=== PATIENT | female | born 1935 | race Caucasian/White ===

== ENCOUNTER → 2018-02-12 | Outpatient (CLI) | payer OTHER ==
[~2018-02-12] MED LIST: CHOL1TAB12 PO; CLR10 PO; FERR325T74 PO; LPT10 PO; METO25TA56 PO; NXM/40 PO; VENL150T33 PO
--- NOTE | 2018-02-12 11:42 | DIAGNOSTIC IMAGING REPORT ---
GI SERIES W/AIR ROUTINE CLINICAL HISTORY: Hiatal hernia. Gastroesophageal reflux disease. COMPARISON STUDY: Barium swallow February 05, 2015. FLUOROSCOPY TIME: 3.2 minutes. FINDINGS: Moderate esophageal dysmotility is noted. No esophageal mass or stricture is noted. A suspected sliding type hiatal hernia is noted which appears similar to exam of February 05, 2015. Proximal portion of stomach appears above the diaphragm. Gastric fold pattern is unremarkable. 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 IMPRESSION: 1. Suspected sliding-type hiatal hernia. 2. Moderate esophageal dysmotility. 3. No esophageal mass or stricture. Electronically signed by: Raul Kraus M.D. 02/12/2018 11:41 AM Dictated Date/Time: 02/12/2018 11:39 AM
== END | disposition home or self-care (01) ==
LOC: C.RAD 10:12
PROVIDERS: ATTEND Surgery
DX: K21.9 Gastro-esophageal reflux disease without esophagitis (principal); K22.4 Dyskinesia of esophagus

== ENCOUNTER 2022-09-27 13:53 | Inpatient (IN) ==
[2022-09-27] MEDS ORDERED: SODIUM CHLORIDE 0.9% 1000ML 1,000 ML IV ONE (14:12)
--- NOTE | 2022-09-27 14:16 | Emergency Department Note ---
Impression & Plan Acute blood loss anemia, PUD (peptic ulcer disease) ED Provider Note Name: LISA SIDDQII Age: 87 Sex: F Arrives Via: Walk-In Informant: Patient ED Provider: Bairon Kahn MD Chief Complaint: Weakness Impression: As per impressions above Medical Decision Making: Pleasant 87-year-old female with an extensive past medical history including diabetes, hypertension, GERD, CKD, aortic stenosis status post TAVR with a history of GI bleed arrives for evaluation of weakness from her medical sales consultant appointment. Patient is a bit pale appearing tired appearing but not in significant distress. Patient arrives hypotensive pale appearing but not significantly tachycardic. She was laid in bed and given a liter normal saline with much improvement in her blood pressure. Labs reveal significant anemia. Rectal exam heme positive dark stool. Given IV protonix and consented to blood transfusion. 1 Unit PRBC ordered. Patient without peritonitis nor surgical abdomen. Does not appear bacteremic and no evidence this is sepsis at this time. She was discussed with hospitalist who will manage further. Stable post fluid resuscitation. Prior Medical Record and Triage/Nursing Notes reviewed by Me Additional history obtained from chart Differentials:Infection, dehydration, metabolic abnormality, hypo/hyperglycemia, electrolyte disturbance, anemia, hypoxia, cardiac sources, intracerebral event, toxicologic, neurologic, as well as other pathologies. Vital Signs: reviewed and remarkable for hypotension Interventions: nss bolus, protonix iv, 1 unit prbc Labs:Reviewed and remarkable for anemia Imaging:X ray results are stated below per my interpretation: Chest: 1 view: No infiltrate, no effusion, normal cardiac border. EKG:As per my interpretation, indication weakness. Normal sinus rhythm at 89 bpm with a QTC of 474. There is no ectopy nor ischemia. EKG is similar to that of June 15, 2016. Consults:hospitalist Plan: Disposition:Hospitalization. Condition: Good History of Present Illness:87-year-old female arrives for evaluation of weakness. Patient notes for the last few months worsening weakness fatigue and lack of appetite. She notes she sometimes throws up but that has been going on for years now. She once had blood in her vomit but it has been in her vomit since February 2022. She states she gets severely short of breath with any exertion and can even get around her house now. This is worsened over the last few months and is to the point where she spends most of her day in bed. She does not have an appetite either and does not eat very often. She denies any fevers, chills, chest pain, syncope, palpitations, abdominal pain, back pain, urinary/bowel symptoms, leg swelling, calf pain, bruising/bleeding or other concerning signs or symptoms. No new medications Has had no acute medications this morning. Patient seen by her medical sales consultant this morning who advised she come to the ER for evaluation. ROS: See above HPI for pertinent positives & negatives. A total of 10 systems reviewed and were otherwise negative. Past Medical History:See Below Past Surgical History:See Below Family History:See Below Social History:See Below Home Medications:See Below Allergies:No known drug allergies Vitals:Blood Pressure: 76/40, Pulse 51, RR 88, T 20C, O2 36.5% on 94 Physical Exam: GENERAL: Patient is tired/dehydrated appearing and in mild distress. EYES: No scleral icterus, unremarkable pupils. ENT: Mucous membranes moist, no nasal congestion. NECK: No masses appreciated, nomeningismus, trachea is midline. RESPIRATORY: No dyspnea. Clear to auscultation and equal bilaterally. No wheeze, no rhonchi. CARDIOVASCULAR: Regular rate and rhythm.No murmurs, rubs, gallops appreciated. GASTROINTESTINAL: Abdomen soft, non-tender, no peritonitis.Bowel sounds positive.No masses appreciated. BACK: No midline tenderness, no CVA tenderness EXTREMITIES: Normal motion all extremities, no cyanosis, no edema. NEUROLOGIC: Alert and oriented, no acute motor or sensory deficits, no focal weakness, cranial nerves grossly intact. SKIN: No rash, no jaundice, no diaphoresis. PSYCH: Appropriate GCS: 15 ED Course: Times/Reassessments: Much improved following fluid bolus stable no distress. Agreeable to blood transfusion and hospitalization. Critical Care: I have personally spent 35 minutes of critical care time in the direct management of this patient. Acute hypotension in setting of blood loss anemia from GI bleed. This was a life/limb threatening event. This 35 minutes is in excess of all separately billable procedures. Bairon Kahn MD Past Med/Surg History Medical History Anemia Anxiety Cardiac murmur Chronic kidney disease, stage 3 Depression Dyspnea on exertion GERD (gastroesophageal reflux disease) History of colon polyps Hyperlipidemia Hypertension On home oxygen therapy 2-3L N/C when she takes a shower Osteoarthritis Symptomatic anemia Surgical History H/O splenectomy "s/p accident 1980" History of bunionectomy of left great toe History of colonoscopy History of dilatation and curettage multiple History of esophagogastroduodenoscopy (EGD) History of left breast biopsy benign History of left cataract extraction History of repair of hiatal hernia History of wisdom tooth extraction Family History Mother Family history of diabetes mellitus Father Family history of diabetes mellitus Sister Family history of diabetes mellitus several Family hx of colon cancer Other No family history of adverse response to anesthesia Social History Smoking Status: Never smoker Second Hand Exposure: Yes; Do You Dip or Chew Tobacco: No; Hx Alcohol Use: No Hx Substance Use: No Preferred Language: French Communication Ability: Effective Submersible Pilot Required: No Beliefs That Will Affect Care: None Current Living Situation: Spouse and Family Current Living Situation Comment: Lives with and son and granddaughter Feels Safe at Home: Yes Safety Concerns: Feels Safe At This Time Assistive Devices: None Allergies Allergies Allergy/AdvReac Type Severity Reaction Status Date / Time pollen extracts Allergy Intermediate Sneezing Verified 09/27/22 16:19 Home Meds Home Medications Medication Instructions Recorded Confirmed fluticasone propionate 50 2 spray intranasal DAILY PRN 07/21/19 09/27/22 mcg/actuation nasal Congestion spray,suspension (Flonase Allergy Relief) multivitamin 1 tab PO 3XWK 07/21/19 09/27/22 pantoprazole 40 mg tablet,delayed 40 mg PO DAILY 07/21/19 09/27/22 release amoxicillin 500 mg tablet 2,000 mg PO DIRECTED PRN PRIOR 09/27/22 09/27/22 TO DENTAL APPT. atorvastatin 80 mg tablet 80 mg PO DAILY 09/27/22 09/27/22 cholecalciferol (vitamin D3) 25 75 mcg PO DAILY 09/27/22 09/27/22 mcg (1,000 unit) capsule (Vitamin D3) iron,carbonyl 65 mg-vitamin C 125 1 tab PO DAILY 09/27/22 09/27/22 mg tablet,delayed release (Vitron-C) metoprolol succinate 25 mg 12.5 mg PO DAILY 09/27/22 09/27/22 tablet,extended release 24 hr mirtazapine 7.5 mg tablet 7.5 mg PO HS 09/27/22 09/27/22 sertraline 50 mg tablet 75 mg PO QPM 09/27/22 09/27/22 Results & Data (ED) Vital Signs Vital Signs - 24 hr 09/27/22 13:55 Temperature 36.5 C Temperature Source Temporal Artery Scan Pulse Rate 88 Respiratory Rate 20 Respiratory Effort / Characteristics Non-Labored Spontaneous Respiratory Depth Normal Respiratory Pattern Regular Blood Pressure 76/51 L Blood Pressure Mean 59 Blood Pressure Position Sitting Pulse Oximetry 94 Oxygen Delivery Method Room Air Sepsis Recent Fever Within 48 Hours No Sepsis New/Unexplained Change in Mental Status No Sepsis Action Taken by Nursing No Action Required Laboratory Data Result diagrams: 09/29/22 06:42 09/29/22 06:42 Lab Results 09/27/22 09/27/22 09/27/22 Range/Units 14:10 14:10 14:10 WBC 8.69 (4.8-10.8) K/ul RBC 3.66 L (3.93-5.22) M/uL Hgb 7.1 L (12.0-16.0) g/dl Hct 24.2 L (34.1-44.9) % MCV 66.1 L (80.0-100.0) fL MCH 19.4 L (25.0-34.0) pg MCHC 29.3 L (32.0-36.0) g/dL RDW Std Deviation 47.5 H (36.4-46.3) fL RDW Coeff of Karen 21.5 H (11.5-14.5) % Plt Count 299 (130-400) K/uL MPV 10.9 (9.4-12.3) fL Immature Gran % (Auto) 0.3 % Neut % (Auto) 68.2 % Lymph % (Auto) 22.0 % Ripley % (Auto) 8.5 % Eos % (Auto) 0.5 % Baso % (Auto) 0.5 % Neut # (Auto) 5.93 (1.4-6.5) K/uL Lymph # (Auto) 1.91 (1.2-3.4) K/uL Ripley # (Auto) 0.74 (0.24-0.82) K/uL Eos # (Auto) 0.04 (0-0.50) K/uL Baso # (Auto) 0.04 (0-0.2) K/uL Immature Gran # (Auto) 0.03 H (0.00-0.02) K/uL Absolute Nucleated RBC 0.03 H (0-0) K/uL Nucleated RBC % (auto) 0.3 % Polychromasia 1+ Hypochromasia Present Anisocytosis Present Macrocytosis Present Target Cells 2+ Peripher Smr Path Cons Sodium 136 (136-145) mmol/L Potassium 3.8 (3.5-5.1) mmol/L Chloride 101 (98-107) mmol/L Carbon Dioxide 26 (21-32) mmol/L Anion Gap 9 (3-11) BUN 20 (6-23) mg/dl Creatinine 1.06 (0.6-1.2) mg/dl Est Cr Clr Drug Dosing 33.2 ml/min Est GFR ( Amer) 54.7 ml/min Est GFR (Non-Af Amer) 47.2 ml/min BUN/Creatinine Ratio 18.9 (10-20) Glucose 155 H (70-99(Fasting)) mg/dl Calcium 9.1 (8.5-10.1) mg/dl Magnesium 2.1 (1.7-2.4) mg/dl Iron (35-150) mcg/dl Transferrin (200-360) mg/dl Ferritin (8-388) ng/ml Total Bilirubin 0.6 (0.2-1.0) mg/dl AST 19 (13-39) U/L ALT 14 (7-52) U/L Alkaline Phosphatase 49 (34-104) U/L Lactate Dehydrogenase (86-244) U/L Troponin I High Sens 147.1 H* (0-14) pg/ml Total Protein 7.7 (6.0-8.3) gm/dl Albumin 4.1 (3.4-5.0) gm/dl Globulin 3.6 (2.5-4.0) gm/dl Albumin/Globulin Ratio 1.1 (0.9-2) Vitamin B12 (180-914) pg/ml Folate (>5.38) ng/ml TSH 1.515 (0.300-4.500) uIu/ml SARS-CoV-2 (PCR) (Negative) Influenza Type A (PCR) (Neg) Influenza Type B (PCR) (Neg) RSV (RT-PCR) (Neg) Blood Type Antibody Screen Crossmatch 09/27/22 09/27/22 09/27/22 Range/Units 14:10 14:10 14:10 WBC (4.8-10.8) K/ul RBC (3.93-5.22) M/uL Hgb (12.0-16.0) g/dl Hct (34.1-44.9) % MCV (80.0-100.0) fL MCH (25.0-34.0) pg MCHC (32.0-36.0) g/dL RDW Std Deviation (36.4-46.3) fL RDW Coeff of Karen (11.5-14.5) % Plt Count (130-400) K/uL MPV (9.4-12.3) fL Immature Gran % (Auto) % Neut % (Auto) % Lymph % (Auto) % Ripley % (Auto) % Eos % (Auto) % Baso % (Auto) % Neut # (Auto) (1.4-6.5) K/uL Lymph # (Auto) (1.2-3.4) K/uL Ripley # (Auto) (0.24-0.82) K/uL Eos # (Auto) (0-0.50) K/uL Baso # (Auto) (0-0.2) K/uL Immature Gran # (Auto) (0.00-0.02) K/uL Absolute Nucleated RBC (0-0) K/uL Nucleated RBC % (auto) % Polychromasia Hypochromasia Anisocytosis Macrocytosis Target Cells Peripher Smr Path Cons Cancelled Sodium (136-145) mmol/L Potassium (3.5-5.1) mmol/L Chloride (98-107) mmol/L Carbon Dioxide (21-32) mmol/L Anion Gap (3-11) BUN (6-23) mg/dl Creatinine (0.6-1.2) mg/dl Est Cr Clr Drug Dosing ml/min Est GFR ( Amer) ml/min Est GFR (Non-Af Amer) ml/min BUN/Creatinine Ratio (10-20) Glucose (70-99(Fasting)) mg/dl Calcium (8.5-10.1) mg/dl Magnesium (1.7-2.4) mg/dl Iron 217 H (35-150) mcg/dl Transferrin 353 (200-360) mg/dl Ferritin 5.1 L (8-388) ng/ml Total Bilirubin (0.2-1.0) mg/dl AST (13-39) U/L ALT (7-52) U/L Alkaline Phosphatase (34-104) U/L Lactate Dehydrogenase (86-244) U/L Troponin I High Sens (0-14) pg/ml Total Protein (6.0-8.3) gm/dl Albumin (3.4-5.0) gm/dl Globulin (2.5-4.0) gm/dl Albumin/Globulin Ratio (0.9-2) Vitamin B12 363 (180-914) pg/ml Folate > 22.30 (>5.38) ng/ml TSH (0.300-4.500) uIu/ml SARS-CoV-2 (PCR) (Negative) Influenza Type A (PCR) (Neg) Influenza Type B (PCR) (Neg) RSV (RT-PCR) (Neg) Blood Type Antibody Screen Crossmatch 09/27/22 09/27/22 09/27/22 Range/Units 14:10 14:17 15:12 WBC (4.8-10.8) K/ul RBC (3.93-5.22) M/uL Hgb (12.0-16.0) g/dl Hct (34.1-44.9) % MCV (80.0-100.0) fL MCH (25.0-34.0) pg MCHC (32.0-36.0) g/dL RDW Std Deviation (36.4-46.3) fL RDW Coeff of Karen (11.5-14.5) % Plt Count (130-400) K/uL MPV (9.4-12.3) fL Immature Gran % (Auto) % Neut % (Auto) % Lymph % (Auto) % Ripley % (Auto) % Eos % (Auto) % Baso % (Auto) % Neut # (Auto) (1.4-6.5) K/uL Lymph # (Auto) (1.2-3.4) K/uL Ripley # (Auto) (0.24-0.82) K/uL Eos # (Auto) (0-0.50) K/uL Baso # (Auto) (0-0.2) K/uL Immature Gran # (Auto) (0.00-0.02) K/uL Absolute Nucleated RBC (0-0) K/uL Nucleated RBC % (auto) % Polychromasia Hypochromasia Anisocytosis Macrocytosis Target Cells Peripher Smr Path Cons Sodium (136-145) mmol/L Potassium (3.5-5.1) mmol/L Chloride (98-107) mmol/L Carbon Dioxide (21-32) mmol/L Anion Gap (3-11) BUN (6-23) mg/dl Creatinine (0.6-1.2) mg/dl Est Cr Clr Drug Dosing ml/min Est GFR ( Amer) ml/min Est GFR (Non-Af Amer) ml/min BUN/Creatinine Ratio (10-20) Glucose (70-99(Fasting)) mg/dl Calcium (8.5-10.1) mg/dl Magnesium (1.7-2.4) mg/dl Iron (35-150) mcg/dl Transferrin (200-360) mg/dl Ferritin (8-388) ng/ml Total Bilirubin (0.2-1.0) mg/dl AST (13-39) U/L ALT (7-52) U/L Alkaline Phosphatase (34-104) U/L Lactate Dehydrogenase 250 H (86-244) U/L Troponin I High Sens (0-14) pg/ml Total Protein (6.0-8.3) gm/dl Albumin (3.4-5.0) gm/dl Globulin (2.5-4.0) gm/dl Albumin/Globulin Ratio (0.9-2) Vitamin B12 (180-914) pg/ml Folate (>5.38) ng/ml TSH (0.300-4.500) uIu/ml SARS-CoV-2 (PCR) NEGATIVE (Negative) Influenza Type A (PCR) Negative (Neg) Influenza Type B (PCR) Negative (Neg) RSV (RT-PCR) Negative (Neg) Blood Type A Positive Antibody Screen NEGATIVE Crossmatch See Detail Administered Medications Atorvastatin Calcium (Atorvastatin 40 Mg Tab) 80 mg PO DAILY ELBA Stop: 10/28/22 08:59 Last Admin: 09/29/22 07:47 Dose: 80 mg Documented By: Admin: 09/28/22 08:58 Dose: 80 mg Documented By: DTT Pantoprazole Sodium 40 mg/ (Dextrose) 100 mls @ 20 mls/hr IV Q5H ELBA Stop: 10/27/22 19:29 Last Admin: 09/29/22 07:55 Dose: 8 mg/hr, 20 mls/hr Documented By: Infusion: 09/29/22 07:48 Dose: 8 mg/hr, 20 mls/hr Documented By: Admin: 09/29/22 02:48 Dose: 8 mg/hr, 20 mls/hr Documented By: Infusion: 09/29/22 02:48 Dose: 0 mg/hr, 0 mls/hr Documented By: Admin: 09/28/22 21:37 Dose: 8 mg/hr, 20 mls/hr Documented By: Infusion: 09/28/22 21:37 Dose: 8 mg/hr, 20 mls/hr Documented By: Admin: 09/28/22 17:25 Dose: 8 mg/hr, 20 mls/hr Documented By: Infusion: 09/28/22 17:14 Dose: 8 mg/hr, 20 mls/hr Documented By: Admin: 09/28/22 12:14 Dose: 8 mg/hr, 20 mls/hr Documented By: Infusion: 09/28/22 11:02 Dose: 8 mg/hr, 20 mls/hr Documented By: Admin: 09/28/22 06:02 Dose: 8 mg/hr, 20 mls/hr Documented By: Infusion: 09/28/22 05:35 Dose: 8 mg/hr, 20 mls/hr Documented By: Admin: 09/28/22 00:35 Dose: 8 mg/hr, 20 mls/hr Documented By: Infusion: 09/28/22 00:35 Dose: 8 mg/hr, 20 mls/hr Documented By: Admin: 09/27/22 20:13 Dose: 8 mg/hr, 20 mls/hr Documented By: OO Insulin Aspart (Insulin Aspart Per Unit) 0 units SC ACHS ELBA Stop: 10/27/22 20:59 Last Admin: 09/28/22 20:44 Dose: Not Given Documented By: Admin: 09/28/22 17:21 Dose: Not Given Documented By: Admin: 09/28/22 13:30 Dose: Not Given Documented By: Admin: 09/28/22 10:22 Dose: Not Given Documented By: Admin: 09/27/22 20:13 Dose: Not Given Documented By: OO Metoprolol Succinate (Metoprolol Succ 25mg Ext Rel Tab) 12.5 mg PO DAILY ELBA Stop: 10/28/22 08:59 Last Admin: 09/29/22 07:47 Dose: 12.5 mg Documented By: Admin: 09/28/22 08:58 Dose: 12.5 mg Documented By: DTT Mirtazapine (Mirtazapine Tab 15 Mg Tab) 7.5 mg PO HS ELBA Stop: 10/27/22 20:59 Last Admin: 09/28/22 21:13 Dose: 7.5 mg Documented By: Admin: 09/27/22 20:48 Dose: 7.5 mg Documented By: OBryan Sertraline HCl (Sertraline Hcl 50 Mg Tablet) 75 mg PO QPM ELBA Stop: 10/27/22 20:59 Last Admin: 09/28/22 21:13 Dose: 75 mg Documented By: Admin: 09/27/22 20:47 Dose: 75 mg Documented By: OO Discontinued Medications Acetaminophen (Acetaminophen 325 Mg Tab) 650 mg PO NOW ONE Stop: 09/28/22 05:21 Last Admin: 09/28/22 05:30 Dose: 650 mg Documented By: KENNY Furosemide (Furosemide Inj 20 Mg/2 Ml Vial) 20 mg IV ONE ONE Stop: 09/28/22 08:31 Last Admin: 09/28/22 09:42 Dose: 20 mg Documented By: DTT Sodium Chloride (Nss 1000ml) 1,000 mls @ 999 mls/hr IV .[id number] ONE Stop: 09/27/22 15:12 Last Infusion: 09/27/22 15:17 Dose: 0 mls/hr Documented By: Admin: 09/27/22 14:15 Dose: 999 mls/hr Documented By: SERGEI Pantoprazole Sodium 80 mg/ (Dextrose) 100 mls @ 400 mls/hr IV ONE STA Stop: 09/27/22 15:02 Last Infusion: 09/27/22 15:25 Dose: 0 mls/hr Documented By: Admin: 09/27/22 15:08 Dose: 400 mls/hr Documented By: DANIAL(2) Sodium Chloride (Nss 1000ml) 1,000 mls @ 60 mls/hr IV .[id number] ELBA Stop: 09/29/22 04:17 Last Infusion: 09/29/22 05:43 Dose: 0 mls/hr Documented By: Admin: 09/28/22 14:00 Dose: 60 mls/hr Documented By: Infusion: 09/28/22 12:53 Dose: 60 mls/hr Documented By: Admin: 09/27/22 20:12 Dose: 60 mls/hr Documented By: OO Discharge Plan Visit Data Chief Complaint: Dehydration Stated Complaint: POSSIBLE DEHYDRATION ED Provider: Bairon Kahn Discharge Problem: Acute blood loss anemia, PUD (peptic ulcer disease) Patient Disposition: Admitted As Inpatient Discharge Instructions Interventions: ED Discharge Assessment Last Done: 09/27/22 19:02
[2022-09-27 14:24] LABS: Hematocrit (blood only) 24.2 % (34.1-44.9); Hemoglobin 7.1 g/dl (12.0-16.0); Mean Corpuscular Hemoglobin 19.4 pg (25.0-34.0); Mean Corpuscular Hgb Conc 29.3 g/dL (32.0-36.0); Mean Corpuscular Volume 66.1 fL (80.0-100.0); Nucleated RBC # (auto) 0.03 K/uL (0-0); Nucleated RBC % (auto) 0.3 %; RDW Coefficient of Variation 21.5 % (11.5-14.5); RDW Standard Deviation 47.5 fL (36.4-46.3); Red Blood Count 3.66 M/uL (3.93-5.22); White Blood Count 8.69 K/ul (4.8-10.8)
[2022-09-27 14:29] LABS: Mean Platelet Volume 10.9 fL (9.4-12.3); Platelet Count 299 K/uL (130-400)
[2022-09-27 14:44] LABS: Anisocytosis Present; Basophils # (auto) 0.04 K/uL (0-0.2); Basophils % (auto) 0.5 %; Eosinophils # (auto) 0.04 K/uL (0-0.50); Eosinophils % (auto) 0.5 %; Hypochromasia Present; Immature Granulocytes # (auto) 0.03 K/uL (0.00-0.02); Immature Granulocytes % (auto) 0.3 %; Lymphocytes # (auto) 1.91 K/uL (1.2-3.4); Macrocytosis Present; Monocytes # (auto) 0.74 K/uL (0.24-0.82); Monocytes % (auto) 8.5 %; Neutrophils # (auto) 5.93 K/uL (1.4-6.5); Neutrophils % (auto) 68.2 %; Polychromasia 1+; Target Cells 2+
[2022-09-27] MEDS ORDERED: SODIUM CHLORIDE 0.9% 250 ML IV PRN (14:48)
[2022-09-27] MEDS ORDERED: PANTOprazole 80 MG in DEXTROSE 5% 100 ML IV STA (14:48)
[2022-09-27 14:52] LABS: Albumin Globulin Ratio 1.1 (0.9-2); Albumin Level 4.1 gm/dl (3.4-5.0); BUN Creatinine Ratio 18.9 (10-20); Bilirubin,Total 0.6 mg/dl (0.2-1.0); Calcium 9.1 mg/dl (8.5-10.1); Creatinine Clr Calc Pharmacy 33.2 ml/min; Est GFR (African American) 54.7 ml/min; Est GFR (Non-African American) 47.2 ml/min; Globulin 3.6 gm/dl (2.5-4.0); Magnesium 2.1 mg/dl (1.7-2.4); Potassium 3.8 mmol/L (3.5-5.1); Total Protein 7.7 gm/dl (6.0-8.3)
[2022-09-27 15:09] LABS: Influenza A virus by PCR Negative (Neg); Influenza B virus by PCR Negative (Neg); RSV by PCR Negative (Neg); SARS CoV2 RNA(COVID-19) Ceph NEGATIVE (Negative)
--- NOTE | 2022-09-27 15:10 | XRay Report ---
XR chest 1V portable HISTORY: Shortness of breath. Dehydration. COMPARISON: None. FINDINGS: No pneumothorax. No pleural effusions. There is a large hiatus hernia. The heart is normal in size. No focal lung consolidations to suggest a pneumonia. No evidence for pulmonary edema. IMPRESSION: 1. No acute process within the chest. 2. Large hiatus hernia. ACT 112: Negative or not required by law. Electronically signed by: Swapnil Dietz M.D. 09/27/2022 3:09 PM
[2022-09-27 15:13] LABS: Troponin I High Sensitivity 147.1 pg/ml (0-14)
--- NOTE | 2022-09-27 16:19 | History & Physical Report ---
Date of Service September 27, 2022 Assessment & Plan (1) Symptomatic anemia: Plan: Symptomatic Anemia Melena +FOBT in ED CT ABD:No acute abnormalities, in particular no evidence of intra-abdominal hemorrhage in this patient with anemia. S/P 1 unit PRBC Monitor H&H Transfuse PRBCs as needed Avoid anticoagulants, NASIDs Anemia work up ordered Started on IV protonix ggt NPO, IV fluids GI consulted Generalized Weakness Failure to Thrive Weight loss ? Multifactorial H/O TAVR Normal TSH PT/OT as able Needs further work-up for weight loss as outpatient Troponin Elevation Likely demand ischemia secondary to significant anemia Denies any chest pain Trend troponin EKG showed no signs of acute ischemia Check ECHO DM II Diet controlled Update HbA1C Insulin per Protocol for now Monitor BGs Severe aortic stenosis S/P TAVR in 2020 Follows with [facility] cardiology as outpatient Continue metoprolol CKD stage III Cr at baseline Monitor BGs Insomnia Mood disorder Continue home meds DVT Px: SCDs Code Status Full Code Disposition PT/OT prior to surgery History of Present Illness Chief Complaint: Generalized weakness Primary Care Provider: Maria Teresa Tomas DO Patient is an 87-year-old female with history of severe aortic stenosis S/P TAVR in 2020, GERD, CKD stage III, insomnia, mood disorder, paroxysmal atrial tachycardia, dyslipidemia, diabetes and other medical problems presents with history of generalized weakness, fatigue with minimal exertion, weight loss which has been ongoing for many months. Patient was evaluated by her draw frame runner today and was thought to be dehydrated and so was sent to ED for further evaluation. Patient admits to have lost about 30 to 40 pounds in about 1 year. She had TAVR about 1 year ago and has not been feeling well since the surgery. She reports having prior history of peptic ulcer disease requiring blood transfusions many years ago. She has been having intermittent nausea, vomiting, poor oral intake and intermittent epigastric pain which she describes as burning type, relieved with yogurt but denies any aggravating factors, radiation. Reports chronic constipation last bowel movement 2 days ago. She states having black stools which she attributes to iron pills but did not notice any bright red blood per rectum. She states that she is not able to perform her ADLs like she did before and she has been lying in bed most of the time for last few months. Denies any history of chest pain, dyspnea, palpitations, pedal edema, cough, fever, chills, headache, diarrhea, dysuria, hematuria. Allergies Allergy/AdvReac Type Severity Reaction Status Date / Time pollen extracts Allergy Intermediate Sneezing Verified 09/27/22 16:19 Home Medications Medication Instructions Recorded Confirmed Type fluticasone propionate 50 2 spray intranasal DAILY PRN 07/21/19 09/27/22 History mcg/actuation nasal Congestion spray,suspension (Flonase Allergy Relief) multivitamin 1 tab PO 3XWK 07/21/19 09/27/22 History pantoprazole 40 mg tablet,delayed 40 mg PO DAILY 07/21/19 09/27/22 History release amoxicillin 500 mg tablet 2,000 mg PO DIRECTED PRN PRIOR 09/27/22 09/27/22 History TO DENTAL APPT. atorvastatin 80 mg tablet 80 mg PO DAILY 09/27/22 09/27/22 History cholecalciferol (vitamin D3) 25 75 mcg PO DAILY 09/27/22 09/27/22 History mcg (1,000 unit) capsule (Vitamin D3) iron,carbonyl 65 mg-vitamin C 125 1 tab PO DAILY 09/27/22 09/27/22 History mg tablet,delayed release (Vitron-C) metoprolol succinate 25 mg 12.5 mg PO DAILY 09/27/22 09/27/22 History tablet,extended release 24 hr mirtazapine 7.5 mg tablet 7.5 mg PO HS 09/27/22 09/27/22 History sertraline 50 mg tablet 75 mg PO QPM 09/27/22 09/27/22 History Past Med/Surg History Medical History (Updated 09/27/22 @ 19:16 by Harrison Vega MD) Anemia Anxiety Cardiac murmur Chronic kidney disease, stage 3 Depression Dyspnea on exertion GERD (gastroesophageal reflux disease) History of colon polyps Hyperlipidemia Hypertension On home oxygen therapy 2-3L N/C when she takes a shower Osteoarthritis Symptomatic anemia Surgical History H/O splenectomy "s/p accident 1980" History of bunionectomy of left great toe History of colonoscopy History of dilatation and curettage multiple History of esophagogastroduodenoscopy (EGD) History of left breast biopsy benign History of left cataract extraction History of repair of hiatal hernia History of wisdom tooth extraction Family History Mother Family history of diabetes mellitus Father Family history of diabetes mellitus Sister Family history of diabetes mellitus several Family hx of colon cancer Other No family history of adverse response to anesthesia Social History Smoking Status: Never smoker Second Hand Exposure: No; Hx Alcohol Use: No Hx Substance Use: No Preferred Language: Wolof Communication Ability: Effective Assembler Chassis Required: Voice Beliefs That Will Affect Care: None Current Living Situation: Spouse Current Living Situation Comment: Lives with and son and granddaughter Feels Safe at Home: Yes Assistive Devices: None Review of Systems Review of Systems: All systems reviewed & are unremarkable except as noted in Subjective Physical Exam Physical Exam: Physical Exam: Vitals signs as noted above General Appearance:Moderately built and nourished, no apparent distress Head: normocephalic, Atraumatic Eyes: normal inspection, EOMI Neck: supple, Trachea midline Respiratory/Chest: Normal breath sounds, CTA, No accessory muscle use Cardiovascular: S1, S2, + murmur Abdomen/GI:Soft, mild hypogastric tender, Bowel sounds present Extremities/Musculoskeletal:normal inspection, no edema Neurologic/Psych:AAOX3, grossly no focal neurological deficits Skin: normal color, warm Results & Data Results & Data ([facility]) Vital Signs (Past 12 Hours) Vital Signs Temp Pulse Pulse Resp BP BP Pulse Ox 09/27/22 15:06 75 20 131/77 99 09/27/22 14:30 80 18 115/61 96 09/27/22 14:13 84 20 111/59 L 97 09/27/22 13:55 36.5 C 88 20 76/51 L 94 O2 Del Method 09/27/22 15:06 Room Air 09/27/22 14:30 Room Air 09/27/22 14:13 Room Air 09/27/22 13:55 Room Air Laboratory Results Short CBC 09/27/22 Range/Units 14:10 WBC 8.69 (4.8-10.8) K/ul Hgb 7.1 L (12.0-16.0) g/dl Hct 24.2 L (34.1-44.9) % Plt Count 299 (130-400) K/uL BMP 09/27/22 14:10 Sodium 136 Potassium 3.8 Chloride 101 Carbon Dioxide 26 BUN 20 Creatinine 1.06 Glucose 155 H Calcium 9.1 Liver Function 09/27/22 Range/Units 14:10 Total Bilirubin 0.6 (0.2-1.0) mg/dl AST 19 (13-39) U/L ALT 14 (7-52) U/L Alkaline Phosphatase 49 (34-104) U/L Albumin 4.1 (3.4-5.0) gm/dl
--- NOTE | 2022-09-27 17:08 | CT Scan Report ---
CT abd pelvis wo con CLINICAL HISTORY: Abdominal Pain, Anemia TECHNIQUE: Helical axial images of the abdomen and pelvis were obtained. Automated dose lowering tech niques and/or adjustment according to patient size were utilized for this exam. This exam was perfor med without intravenous contrast. CT DOSE: 272.79 mGy.cm COMPARISON: None available at the time of this dictation. FINDINGS: Lower chest: Scarring is noted in the lung bases. Lateral annular calcification is seen. Liver: Unremarkable. No focal lesions are seen. Gallbladder and biliary tree: No calcified gallstones. Normal caliber wall. No intra- or extrahepatic biliary ductal dilation. Pancreas: Unremarkable, no focal lesions. Spleen: The spleen is diminutive. Adrenals: Unremarkable. Kidneys and ureters: Unremarkable. Bladder: Unremarkable. Reproductive organs: Unremarkable. Bowel: Diverticulosis is seen without evidence of diverticulitis. There is a large hiatal hernia whic h also contains a portion of pancreas. Lymph nodes Retroperitoneal: Unremarkable. Pelvic: Unremarkable. Mesenteric: Unremarkable. Peritoneum: Normal. Vessels: Unremarkable. Abdominal wall: Bilateral fat-containing inguinal hernias are seen. An umbilical hernia is seen. Bones: Degenerative changes in the visualized spine. 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 Old healed rib fractures are seen. IMPRESSION: No acute abnormalities, in particular no evidence of intra-abdominal hemorrhage in this patient with anemia. ACT 112: Negative or not required by law. Electronically signed by: Diony Isidro M.D. 09/27/2022 5:07 PM
[2022-09-27] MEDS ORDERED: CARBOHYDRATES FOR HYPOGLYCEMIA PO PRN (18:58)
[2022-09-27] MEDS ORDERED: GLUCOSE 40% GEL 15 GM TUBE PO PRN (18:58)
[2022-09-27] MEDS ORDERED: POLYETHYLENE (MIRALAX) 17 GM PACK PO PRN (18:58)
[2022-09-27] MEDS ORDERED: ACETAMINOPHEN 325 MG TAB PO PRN (18:58)
[2022-09-27] MEDS ORDERED: GLUCAGON FOR INJ 1 MG VIAL SQ PRN (18:58)
[2022-09-27] MEDS ORDERED: PROMETHAZINE HCL 6.25 MG in SODIUM CHLORIDE 0.9% 50 ML IV PRN (18:58)
[2022-09-27] MEDS ORDERED: GLUCOSE 10 TAB/TUBE PO PRN (18:58)
[2022-09-27] MEDS ORDERED: DEXTROSE 50% 50 ML SYRINGE IV PRN (18:58)
[2022-09-27] MEDS ORDERED: FLUTICASONE PROPIONATE NA SPR 16 GM BTL PRN (19:14)
[2022-09-27 19:37] LABS: Ferritin 5.1 ng/ml (8-388)
[2022-09-27 19:43] LABS: Vitamin B12 363 pg/ml (180-914)
[2022-09-27] MEDS: SODIUM CHLORIDE 0.9% 1000ML 1,000 ML IV SCH (20:12)
[2022-09-27] MEDS: PANTOprazole 40 MG in DEXTROSE 5% 100 ML IV SCH (20:13)
[2022-09-27] MEDS: INSULIN ASPART PER UNIT SC SCH (20:13)
[2022-09-27] MEDS: SERTRALINE HCL 50 MG TABLET PO SCH (20:47)
[2022-09-27] MEDS: MIRTAZAPINE TAB 15 MG TAB PO SCH (20:48)
[2022-09-27 23:32] LABS: Appearance Urine Clear (Clear); Bacteria Urine Automated Negative (Negative); Bilirubin Urine Negative (Negative); Blood Urine Negative (Negative); Cast Urine Automated 0 /lpf (0-5); Color Urine Yellow; Glucose Urine UA Negative (Negative); Ketones Urine Negative (Negative); Leukocyte Esterase Urine 1+ (Negative); Nitrite Urine Negative (Negative); Protein Urine Negative (Negative); RBC Urine Automated 0-4 /hpf (0-4); Specific Gravity Urine 1.006 (1.000-1.030); Urobilinogen Urine Negative (Negative); pH Urine 5.5 (4.5-7.5)
[2022-09-28] MEDS: PANTOprazole 40 MG in DEXTROSE 5% 100 ML IV SCH ×5 (00:35→21:37)
[2022-09-28 01:36] LABS: Hematocrit (blood only) 24.3 % (34.1-44.9); Hemoglobin 7.3 g/dl (12.0-16.0)
[2022-09-28 04:30] LABS: Hemoglobin 6.7 g/dl (12.0-16.0); Mean Corpuscular Hemoglobin 20.9 pg (25.0-34.0); Mean Corpuscular Hgb Conc 30.5 g/dL (32.0-36.0); Mean Corpuscular Volume 68.8 fL (80.0-100.0); Mean Platelet Volume 10.9 fL (9.4-12.3); Nucleated RBC # (auto) 0.04 K/uL (0-0); Nucleated RBC % (auto) 0.6 %; Platelet Count 273 K/uL (130-400); RDW Coefficient of Variation 21.1 % (11.5-14.5); RDW Standard Deviation 51.1 fL (36.4-46.3); White Blood Count 7.01 K/ul (4.8-10.8)
[2022-09-28] MEDS ORDERED: SODIUM CHLORIDE 0.9% 250 ML IV PRN (04:39)
[2022-09-28 05:02] LABS: Albumin Globulin Ratio 1.1 (0.9-2); Albumin Level 3.1 gm/dl (3.4-5.0); BUN Creatinine Ratio 21.3 (10-20); Bilirubin,Total 0.7 mg/dl (0.2-1.0); Calcium 7.8 mg/dl (8.5-10.1); Creatinine Clr Calc Pharmacy 48.1 ml/min; Est GFR (African American) 83.1 ml/min; Est GFR (Non-African American) 71.7 ml/min; Globulin 2.7 gm/dl (2.5-4.0); Potassium 3.6 mmol/L (3.5-5.1); Total Protein 5.8 gm/dl (6.0-8.3)
[2022-09-28] MEDS ORDERED: ACETAMINOPHEN 325 MG TAB PO ONE (05:20)
[2022-09-28] MEDS ORDERED: Flu Vaccine-High Dose (Fluzone-HD) PF 65+ 0.7mL SYR IM ONE (05:30)
--- NOTE | 2022-09-28 07:21 | Electrocardiogram Report ---
Test Reason : Blood Pressure : / mmHG Vent. Rate : 089 BPM Atrial Rate : 089 BPM P-R Int : 126 ms QRS Dur : 088 ms QT Int : 390 ms P-R-T Axes : 022 053 010 degrees QTc Int : 474 ms Normal sinus rhythm Nonspecific ST abnormality When compared with ECG of 15-JUN-2016 06:39, QRS duration has decreased Confirmed by Efra Grullon ([id number]) on 09/28/2022 7:20:46 AM Referred By: Confirmed By:Efra Grullon
[2022-09-28] MEDS ORDERED: FUROSEMIDE INJ 20 MG/2 ML VIAL IV ONE (08:30)
[2022-09-28] MEDS: METOPROLOL SUCC 25MG EXT REL TAB PO SCH (08:58)
[2022-09-28] MEDS: ATORVASTATIN 40 MG TAB PO SCH (08:58)
--- NOTE | 2022-09-28 09:48 | Cardiology Consultation ---
Date of Consultation September 28, 2022 Assessment & Plan (1) Symptomatic anemia: (2) S/P TAVR (transcatheter aortic valve replacement): (3) PUD (peptic ulcer disease): Plan From a cardiac standpoint the patient is clinically stable. Main issue here is her anemia which has been corrected. Further work-up per the hospitalist service. History of Present Illness Attending Physician: Alexander Ward MD History of Present Illness This is an 87-year-old female who in August 2021 received a AFSANEH for aortic stenosis. At that time she had widely patent coronary anatomy by cardiac catheterization. From a cardiac standpoint the patient has done well following her AFSANEH but has had a history of chronic iron deficiency anemia. She was seen at our clinic yesterday and sent to the hospital with generalized malaise and not feeling well. She was found to be dehydrated and profoundly anemic. She has a recent history of anorexia and recent weight loss. She was given blood transfusions as well as IV fluid. She feels markedly improved today. She was formed me that in the past she has received iron infusions from her physician in [place] due to an iron deficiency anemia. She has also had peptic ulcer disease. Past medical history: 1.Severe aortic stenosis, status post TAVR 08/09/2021 #23 mm Galvan Matheus S3 Ultra valve with Dr. Paulette galvez.Developed left bundle branch block after valve deployment without any evidence of any dropped beats- beta-vega held discharge 2.Widely patent coronary anatomy per cardiac catheterization at [facility] 04/07/2021 3.Chronic iron deficiency anemia, unknown etiology- resolved 4.Hypoxia, uses oxygen intermittently at home does not regularly follow with Pulmonary 5.Hyperlipidemia 6.History of paroxysmal atrial tachycardia, diagnosed in her 30s Allergies Allergy/AdvReac Type Severity Reaction Status Date / Time pollen extracts Allergy Intermediate Sneezing Verified 09/27/22 16:19 Home Medications Medication Instructions Recorded Confirmed Type fluticasone propionate 50 2 spray intranasal DAILY PRN 07/21/19 09/27/22 History mcg/actuation nasal Congestion spray,suspension (Flonase Allergy Relief) multivitamin 1 tab PO 3XWK 07/21/19 09/27/22 History pantoprazole 40 mg tablet,delayed 40 mg PO DAILY 07/21/19 09/27/22 History release amoxicillin 500 mg tablet 2,000 mg PO DIRECTED PRN PRIOR 09/27/22 09/27/22 History TO DENTAL APPT. atorvastatin 80 mg tablet 80 mg PO DAILY 09/27/22 09/27/22 History cholecalciferol (vitamin D3) 25 75 mcg PO DAILY 09/27/22 09/27/22 History mcg (1,000 unit) capsule (Vitamin D3) iron,carbonyl 65 mg-vitamin C 125 1 tab PO DAILY 09/27/22 09/27/22 History mg tablet,delayed release (Vitron-C) metoprolol succinate 25 mg 12.5 mg PO DAILY 09/27/22 09/27/22 History tablet,extended release 24 hr mirtazapine 7.5 mg tablet 7.5 mg PO HS 09/27/22 09/27/22 History sertraline 50 mg tablet 75 mg PO QPM 09/27/22 09/27/22 History Patient History Medical History Anemia Anxiety Cardiac murmur Chronic kidney disease, stage 3 Depression Dyspnea on exertion GERD (gastroesophageal reflux disease) History of colon polyps Hyperlipidemia Hypertension On home oxygen therapy 2-3L N/C when she takes a shower Osteoarthritis Symptomatic anemia Surgical History H/O splenectomy "s/p accident 1980" History of bunionectomy of left great toe History of colonoscopy History of dilatation and curettage multiple History of esophagogastroduodenoscopy (EGD) History of left breast biopsy benign History of left cataract extraction History of repair of hiatal hernia History of wisdom tooth extraction Family History Mother Family history of diabetes mellitus Father Family history of diabetes mellitus Sister Family history of diabetes mellitus several Family hx of colon cancer Other No family history of adverse response to anesthesia Social History Smoking Status: Never smoker Second Hand Exposure: Yes; Do You Dip or Chew Tobacco: No; Hx Alcohol Use: No Hx Substance Use: No Preferred Language: Guyanese Communication Ability: Effective Fish Header Required: No Beliefs That Will Affect Care: None Current Living Situation: Spouse and Family Current Living Situation Comment: Lives with and son and granddaughter Feels Safe at Home: Yes Safety Concerns: Feels Safe At This Time Assistive Devices: None Review of Systems Review of Systems: Review of Systems: See HPI for pertinent positives. All other 10 point review of systems are negative. Physical Exam Physical Exam: General: no acute distress and stated age Head: normocephalic, no masses, lesions, tenderness or abnormalities Eyes: conjunctiva are pink and non-injected, sclera clear Neck: supple, no adenopathy, no bruits, normal jugular venous pulse, no hepatojugular reflux Chest: normal shape and normal respiratory effort Lungs: clear to auscultation and percussion Cardiac Exam: - regular rate & rhythm, no murmurs gallops or rubs - normal S1, normal S2 Pulses: 2(+) throughout Abdomen: abdomen soft, non-tender, no abnormal masses and no hepatosplenomegaly Musculoskeletal: no gait disturbance, no joint inflammation, no deforming arthritis Extremities: no edema and no cyanosis Neuro: grossly normal exam Results & Data ([facility]) Vital Signs (Past 12 Hours) Vital Signs Temp Pulse Pulse Resp BP BP Pulse Ox 09/28/22 06:41 36.9 C 75 18 136/79 97 09/28/22 06:20 37.0 C 73 20 147/68 H 94 09/28/22 06:11 37.3 C 75 138/78 96 09/28/22 05:56 37.1 C 80 135/73 09/28/22 05:40 36.7 C 77 17 140/67 96 09/28/22 02:58 37.2 C 83 20 125/67 94 09/28/22 00:36 37.0 C 76 111/63 91 09/28/22 00:27 79 O2 Del Method 09/28/22 06:41 09/28/22 06:20 09/28/22 06:11 09/28/22 05:56 09/28/22 05:40 09/28/22 02:58 Room Air 09/28/22 00:36 Room Air 09/28/22 00:27
[2022-09-28] MEDS: INSULIN ASPART PER UNIT SC SCH ×4 (10:22→20:44)
--- NOTE | 2022-09-28 10:31 | Electrocardiogram Report ---
Test Reason : Blood Pressure : / mmHG Vent. Rate : 074 BPM Atrial Rate : 074 BPM P-R Int : 202 ms QRS Dur : 108 ms QT Int : 442 ms P-R-T Axes : 057 052 008 degrees QTc Int : 490 ms Poor data quality, interpretation may be adversely affected Normal sinus rhythm Normal ECG When compared with ECG of 27-SEP-2022 14:06, No significant change was found Confirmed by Bryan Jeffries ([id number]) on 09/28/2022 10:31:25 AM Referred By: REFERRED SELF Confirmed By:Bryan Jeffries
--- NOTE | 2022-09-28 13:04 | Hospitalist Progress Note ---
Date of Service September 28, 2022 Assessment & Plan (1) Symptomatic anemia: Plan: Symptomatic Anemias/p 3 units of packed RBC transfusion Melena Likely Upper GI bleed Hx of GERD, Hiatal hernia. Hypotensive on presentation; blood pressure improved after transfusion +FOBT in ED CT ABD:No acute abnormalities, in particular no evidence of intra-abdominal hemorrhage in this patient with anemia. Ferritin 5.1 Microcytic Anemia present Plan; -Patient has received 3 units of packed RBC; will receive H&H. -Currently on Protonix drip; continue for now. -N.p.o. for now; GI on board. Appreciate recs. Troponin Elevation Likely demand ischemia secondary to significant anemia Hx of TAVR 08/09/2021 Denies any chest pain Widely patent coronary anatomy per cardiac catheterization at [facility] 04/07/2021 Troponin trended up to 600s. Echo shows well-seated prosthetic aortic valve. EF of 55 to 60%. No segmental wall motion abdominal pain. Plancardiology on board; patient is stable from cardiac standpoint. Recommend to correct her anemia. DM II Diet controlled A1c would not be of any significance given her anemia and repeated transfusion. Monitor blood glucose Severe aortic stenosis S/P TAVR in 2020 Follows with [facility] cardiology as outpatient Continue metoprolol Insomnia Mood disorder Continue home meds DVT Px: SCDs Code Status Full Code Disposition PT/OT ordered Admission and Anticipated Discharge Date Admission Date: September 27, 2022 Subjective Patient seen and examined at bedside. She reports that she is feeling more stronger after the blood transfusion. She is afebrile; her vitals are stable. Review of Systems Review of Systems: All systems reviewed & are unremarkable except as noted in Subjective Physical Exam Physical Exam: General: no acute distress and stated age Head: normocephalic, no masses, lesions, tenderness or abnormalities Eyes: conjunctiva are pink and non-injected, sclera clear Neck: supple, no adenopathy, no bruits, normal jugular venous pulse, no hepatojugular reflux Chest: normal shape and normal respiratory effort Lungs: clear to auscultation and percussion Cardiac Exam: - regular rate & rhythm, no murmurs gallops or rubs - normal S1, normal S2 Pulses: 2(+) throughout Abdomen: Soft, nontender. Musculoskeletal: no gait disturbance, no joint inflammation, no deforming arthritis Extremities: no edema and no cyanosis Neuro: grossly normal exam Results & Data Results & Data ([facility]) Vital Signs (Past 12 Hours) Vital Signs Temp Pulse Pulse Resp BP BP Pulse Ox 09/28/22 12:05 36.7 C 70 20 138/71 92 09/28/22 08:00 75 09/28/22 08:00 09/28/22 09:30 36.5 C 69 18 147/61 H 09/28/22 06:41 36.9 C 75 18 136/79 97 09/28/22 06:20 37.0 C 73 20 147/68 H 94 09/28/22 06:11 37.3 C 75 138/78 96 09/28/22 05:56 37.1 C 80 135/73 09/28/22 05:40 36.7 C 77 17 140/67 96 09/28/22 02:58 37.2 C 83 20 125/67 94 O2 Del Method 09/28/22 12:05 Room Air 09/28/22 08:00 09/28/22 08:00 Room Air 09/28/22 09:30 09/28/22 06:41 09/28/22 06:20 09/28/22 06:11 09/28/22 05:56 09/28/22 05:40 09/28/22 02:58 Room Air Laboratory Results Laboratory Results WBC 7.01 K/ul (4.8-10.8) 09/28/22 04:14 RBC 3.20 M/uL (3.93-5.22) L 09/28/22 04:14 Hgb 6.7 g/dl (12.0-16.0) L* 09/28/22 04:14 Hct 22.0 % (34.1-44.9) L 09/28/22 04:14 MCV 68.8 fL (80.0-100.0) L 09/28/22 04:14 MCH 20.9 pg (25.0-34.0) L 09/28/22 04:14 MCHC 30.5 g/dL (32.0-36.0) L 09/28/22 04:14 RDW Std Deviation 51.1 fL (36.4-46.3) H 09/28/22 04:14 RDW Coeff of Karen 21.1 % (11.5-14.5) H 09/28/22 04:14 Plt Count 273 K/uL (130-400) 09/28/22 04:14 MPV 10.9 fL (9.4-12.3) 09/28/22 04:14 Immature Gran % (Auto) 0.3 % 09/27/22 14:10 Neut % (Auto) 68.2 % 09/27/22 14:10 Lymph % (Auto) 22.0 % 09/27/22 14:10 [place] % (Auto) 8.5 % 09/27/22 14:10 Eos % (Auto) 0.5 % 09/27/22 14:10 Baso % (Auto) 0.5 % 09/27/22 14:10 Neut # (Auto) 5.93 K/uL (1.4-6.5) 09/27/22 14:10 Lymph # (Auto) 1.91 K/uL (1.2-3.4) 09/27/22 14:10 [place] # (Auto) 0.74 K/uL (0.24-0.82) 09/27/22 14:10 Eos # (Auto) 0.04 K/uL (0-0.50) 09/27/22 14:10 Baso # (Auto) 0.04 K/uL (0-0.2) 09/27/22 14:10 Immature Gran # (Auto) 0.03 K/uL (0.00-0.02) H 09/27/22 14:10 Absolute Nucleated RBC 0.04 K/uL (0-0) H 09/28/22 04:14 Nucleated RBC % (auto) 0.6 % 09/28/22 04:14 Polychromasia 1+ 09/27/22 14:10 Hypochromasia Present 09/27/22 14:10 Anisocytosis Present 09/27/22 14:10 Macrocytosis Present 09/27/22 14:10 Target Cells 2+ 09/27/22 14:10 Peripher Smr Path Cons Cancelled 09/27/22 14:10 Sodium 137 mmol/L (136-145) 09/28/22 04:14 Potassium 3.6 mmol/L (3.5-5.1) 09/28/22 04:14 Chloride 108 mmol/L (98-107) H 09/28/22 04:14 Carbon Dioxide 24 mmol/L (21-32) 09/28/22 04:14 Anion Gap 5 (3-11) 09/28/22 04:14 BUN 16 mg/dl (6-23) 09/28/22 04:14 Creatinine 0.75 mg/dl (0.6-1.2) D 09/28/22 04:14 Est Cr Clr Drug Dosing 48.1 ml/min 09/28/22 04:14 Est GFR ( Amer) 83.1 ml/min 09/28/22 04:14 Est GFR (Non-Af Amer) 71.7 ml/min 09/28/22 04:14 BUN/Creatinine Ratio 21.3 (10-20) H 09/28/22 04:14 Glucose 89 mg/dl (70-99(Fasting)) 09/28/22 04:14 POC Glucose 108 mg/dl (70-99) H 09/28/22 11:24 Calcium 7.8 mg/dl (8.5-10.1) L 09/28/22 04:14 Magnesium 2.0 mg/dl (1.7-2.4) 09/28/22 04:14 Iron 217 mcg/dl (35-150) H 09/27/22 14:10 Transferrin 353 mg/dl (200-360) 09/27/22 14:10 Ferritin 5.1 ng/ml (8-388) L 09/27/22 14:10 Total Bilirubin 0.7 mg/dl (0.2-1.0) 09/28/22 04:14 AST 18 U/L (13-39) 09/28/22 04:14 ALT 10 U/L (7-52) 09/28/22 04:14 Alkaline Phosphatase 38 U/L (34-104) 09/28/22 04:14 Lactate Dehydrogenase 250 U/L (86-244) H 09/27/22 14:10 Troponin I High Sens 688.2 pg/ml (0-14) H* D 09/28/22 09:58 Total Protein 5.8 gm/dl (6.0-8.3) L D 09/28/22 04:14 Albumin 3.1 gm/dl (3.4-5.0) L 09/28/22 04:14 Globulin 2.7 gm/dl (2.5-4.0) 09/28/22 04:14 Albumin/Globulin Ratio 1.1 (0.9-2) 09/28/22 04:14 Vitamin B12 363 pg/ml (180-914) 09/27/22 14:10 Folate > 22.30 ng/ml (>5.38) 09/27/22 14:10 TSH 1.515 uIu/ml (0.300-4.500) 09/27/22 14:10 Urine Color Yellow 09/27/22 23:12 Urine Appearance Clear (Clear) 09/27/22 23:12 Urine pH 5.5 (4.5-7.5) 09/27/22 23:12 Ur Specific [place] 1.006 (1.000-1.030) 09/27/22 23:12 Urine Protein Negative (Negative) 09/27/22 23:12 Urine Glucose (UA) Negative (Negative) 09/27/22 23:12 Urine Ketones Negative (Negative) 09/27/22 23:12 Urine Blood Negative (Negative) 09/27/22 23:12 Urine Nitrite Negative (Negative) 09/27/22 23:12 Urine Bilirubin Negative (Negative) 09/27/22 23:12 Urine Urobilinogen Negative (Negative) 09/27/22 23:12 Ur Leukocyte Esterase 1+ (Negative) H 09/27/22 23:12 Urine WBC (Auto) 1-5 /hpf (0-5) 09/27/22 23:12 Urine RBC (Auto) 0-4 /hpf (0-4) 09/27/22 23:12 U Hyaline Cast (Auto) 0 /lpf (0-5) 09/27/22 23:12 U Epithel Cells (Auto) 10-20 /lpf (0-5) H 09/27/22 23:12 Urine Bacteria (Auto) Negative (Negative) 09/27/22 23:12 SARS-CoV-2 (PCR) NEGATIVE (Negative) 09/27/22 14:17 Influenza Type A (PCR) Negative (Neg) 09/27/22 14:17 Influenza Type B (PCR) Negative (Neg) 09/27/22 14:17 RSV (RT-PCR) Negative (Neg) 09/27/22 14:17 Blood Type A Positive 09/27/22 15:12 Blood Type Recheck A Positive 09/28/22 04:14 Antibody Screen NEGATIVE 09/27/22 15:12 Crossmatch See Detail 09/27/22 15:12 Impressions Chest X-Ray 09/27/22 14:12 XR chest 1V portable HISTORY: Shortness of breath. Dehydration. COMPARISON: None. FINDINGS: No pneumothorax. No pleural effusions. There is a large hiatus hernia. The heart is normal in size. No focal lung consolidations to suggest a pneumonia. No evidence for pulmonary edema. IMPRESSION: 1. No acute process within the chest. 2. Large hiatus hernia. ACT 112: Negative or not required by law. Electronically signed by: Swapnil Dietz M.D. 09/27/2022 3:09 PM Abdomen/Pelvis CT 09/27/22 16:26 CT abd pelvis wo con CLINICAL HISTORY: Abdominal Pain, Anemia TECHNIQUE: Helical axial images of the abdomen and pelvis were obtained. Automated dose lowering techniques and/or adjustment according to patient size were utilized for this exam. This exam was performed without intravenous contrast. CT DOSE: 272.79 mGy.cm COMPARISON: None available at the time of this dictation. FINDINGS: Lower chest: Scarring is noted in the lung bases. Lateral annular calcification is seen. Liver: Unremarkable. No focal lesions are seen. Gallbladder and biliary tree: No calcified gallstones. Normal caliber wall. No intra- or extrahepatic biliary ductal dilation. Pancreas: Unremarkable, no focal lesions. Spleen: The spleen is diminutive. Adrenals: Unremarkable. Kidneys and ureters: Unremarkable. Bladder: Unremarkable. Reproductive organs: Unremarkable. Bowel: Diverticulosis is seen without evidence of diverticulitis. There is a large hiatal hernia which also contains a portion of pancreas. Lymph nodes Retroperitoneal: Unremarkable. Pelvic: Unremarkable. Mesenteric: Unremarkable. Peritoneum: Normal. Vessels: Unremarkable. Abdominal wall: Bilateral fat-containing inguinal hernias are seen. An umbilical hernia is seen. Bones: Degenerative changes in the visualized spine. 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 Old healed rib fractures are seen. IMPRESSION: No acute abnormalities, in particular no evidence of intra-abdominal hemorrhage in this patient with anemia. ACT 112: Negative or not required by law. Electronically signed by: Diony Isidro M.D. 09/27/2022 5:07 PM
[2022-09-28] MEDS: SODIUM CHLORIDE 0.9% 1000ML 1,000 ML IV SCH (14:00)
--- NOTE | 2022-09-28 17:23 | Gastrointestinal Consultation ---
Date of Consultation September 28, 2022 Assessment & Plan (1) PUD (peptic ulcer disease): (2) Acute blood loss anemia: No overt GI bleeding at present, however, she did require 3 units of PRBC's from her chronic anemia Continue Pantoprazole at present, but switch to 40 mg IV BID Will keep NPO after midnight for possible EGD if H/H would not respond appropriately to transfusions. She may need iron infusions for chronic iron deficiency, as she has had these previously. Continue current therapy and supportive care Transfuse as needed, as per the Hospitalist team History of Present Illness Reason for Consultation: Anemia, FOBT +, History of PUD Attending Physician: Alexander Ward MD History of Present Illness 87 yo CF with an extensive PMHx who presented to the ER yesterday secondary to weakness, fatigue, weight loss, and loss of appetite. She states that she had been getting more SOB with exertion, and was seen by her outpatient cardiology group yesterday. Due to her symptoms and medical history, they recommended she go to the hospitall for further evaluation. Upon arrival in the ER, she was noted to have a Hgb of 7.1 and a Hct of 24.2. She was heme positive. She was dehydrated and was given IVF and transfused 3 u of PRBC, which was completed earlier today. She does have a remote history of PUD. At the time I saw her, she was feeling much better. She states that the transfusions have significantly helped and she feels much better. She does have some epigastric abdominal pain and has had intermittent nausea in the past few months, which has affected her appetite. She admits to having such little energy that she spends most of her day in bed. She denies any fevers, chills, nausea, vomiting, hemate mesis, melena, or diarrhea. She states she has not had a bowel movement since her arrival at the ER. She has no further complaints. Allergies Allergy/AdvReac Type Severity Reaction Status Date / Time pollen extracts Allergy Intermediate Sneezing Verified 09/27/22 16:19 Home Medications Medication Instructions Recorded Confirmed Type fluticasone propionate 50 2 spray intranasal DAILY PRN 07/21/19 09/27/22 History mcg/actuation nasal Congestion spray,suspension (Flonase Allergy Relief) multivitamin 1 tab PO 3XWK 07/21/19 09/27/22 History pantoprazole 40 mg tablet,delayed 40 mg PO DAILY 07/21/19 09/27/22 History release amoxicillin 500 mg tablet 2,000 mg PO DIRECTED PRN PRIOR 09/27/22 09/27/22 History TO DENTAL APPT. atorvastatin 80 mg tablet 80 mg PO DAILY 09/27/22 09/27/22 History cholecalciferol (vitamin D3) 25 75 mcg PO DAILY 09/27/22 09/27/22 History mcg (1,000 unit) capsule (Vitamin D3) iron,carbonyl 65 mg-vitamin C 125 1 tab PO DAILY 09/27/22 09/27/22 History mg tablet,delayed release (Vitron-C) metoprolol succinate 25 mg 12.5 mg PO DAILY 09/27/22 09/27/22 History tablet,extended release 24 hr mirtazapine 7.5 mg tablet 7.5 mg PO HS 09/27/22 09/27/22 History sertraline 50 mg tablet 75 mg PO QPM 09/27/22 09/27/22 History Patient History Medical History Anemia Anxiety Cardiac murmur Chronic kidney disease, stage 3 Depression Dyspnea on exertion GERD (gastroesophageal reflux disease) History of colon polyps Hyperlipidemia Hypertension On home oxygen therapy 2-3L N/C when she takes a shower Osteoarthritis Symptomatic anemia Surgical History H/O splenectomy "s/p accident 1980" History of bunionectomy of left great toe History of colonoscopy History of dilatation and curettage multiple History of esophagogastroduodenoscopy (EGD) History of left breast biopsy benign History of left cataract extraction History of repair of hiatal hernia History of wisdom tooth extraction Family History Mother Family history of diabetes mellitus Father Family history of diabetes mellitus Sister Family history of diabetes mellitus several Family hx of colon cancer Other No family history of adverse response to anesthesia Social History Smoking Status: Never smoker Second Hand Exposure: Yes; Do You Dip or Chew Tobacco: No; Hx Alcohol Use: No Hx Substance Use: No Preferred Language: Bengali Communication Ability: Effective Formula Technician Required: No Beliefs That Will Affect Care: None Current Living Situation: Spouse and Family Current Living Situation Comment: Lives with and son and granddaughter Feels Safe at Home: Yes Safety Concerns: Feels Safe At This Time Assistive Devices: None Review of Systems Review of Systems: All systems reviewed & are unremarkable except as noted in Subjective Physical Exam Constitutional: WD/WN, vitals as above Eyes: + anicteric sclerae ENMT: external ear and nose normal, oropharynx normal Neck: normal visual inspection Respiratory: normal respiratory effort, lungs clear to auscultation Cardiovascular: RRR, no murmur, no edema Gastrointestinal (Abdomen): Inspection/Auscultation: abdomen normal to inspection and normal bowel sounds; abdomen not distended Percussion/Palpation: + abdomen tender (epigastric) and abdomen soft Skin: no rashes, warm and dry Psychiatric: A+Ox3, euthymic affect Results & Data ([facility]) Vital Signs (Past 12 Hours) Vital Signs Temp Pulse Pulse Resp BP BP Pulse Ox 09/28/22 16:29 37.1 C 70 18 150/74 H 94 09/28/22 16:03 37.2 C 69 18 152/78 H 93 09/28/22 15:03 76 18 176/79 H 94 09/28/22 14:33 68 18 155/94 H 94 09/28/22 14:18 79 18 155/83 H 09/28/22 14:00 36.8 C 68 18 144/70 H 93 09/28/22 12:05 36.7 C 70 20 138/71 92 09/28/22 08:00 75 09/28/22 08:00 09/28/22 09:30 36.5 C 69 18 147/61 H 09/28/22 06:41 36.9 C 75 18 136/79 97 09/28/22 06:20 37.0 C 73 20 147/68 H 94 09/28/22 06:11 37.3 C 75 138/78 96 09/28/22 05:56 37.1 C 80 135/73 09/28/22 05:40 36.7 C 77 17 140/67 96 O2 Del Method 09/28/22 16:29 09/28/22 16:03 09/28/22 15:03 09/28/22 14:33 09/28/22 14:18 09/28/22 14:00 09/28/22 12:05 Room Air 09/28/22 08:00 09/28/22 08:00 Room Air 09/28/22 09:30 09/28/22 06:41 09/28/22 06:20 09/28/22 06:11 09/28/22 05:56 09/28/22 05:40 PG Care Time/CCT Total # of Minutes Spent Total Time Spent with Patient: Total time spent is greater than 50% in coordination of care (as documented) at patient's floor/unit and/or counseling patient: Coding Level of Care Code 74959 Initial Inpt Care Lvl 3 Diagnoses PUD (peptic ulcer disease) K27.9 Acute blood loss anemia D62
[2022-09-28 18:10] LABS: Hematocrit (blood only) 31.9 % (34.1-44.9); Hemoglobin 10.3 g/dl (12.0-16.0)
[2022-09-28] MEDS: SERTRALINE HCL 50 MG TABLET PO SCH (21:13)
[2022-09-28] MEDS: MIRTAZAPINE TAB 15 MG TAB PO SCH (21:13)
[2022-09-29] MEDS: PANTOprazole 40 MG in DEXTROSE 5% 100 ML IV SCH ×2 (02:48→07:55)
[2022-09-29 06:59] LABS: Basophils # (auto) 0.05 K/uL (0-0.2); Basophils % (auto) 0.7 %; Eosinophils # (auto) 0.21 K/uL (0-0.50); Hemoglobin 10.5 g/dl (12.0-16.0); Immature Granulocytes # (auto) 0.02 K/uL (0.00-0.02); Immature Granulocytes % (auto) 0.3 %; Lymphocytes # (auto) 1.93 K/uL (1.2-3.4); Lymphocytes % (auto) 27.8 %; Mean Corpuscular Hgb Conc 32.8 g/dL (32.0-36.0); Mean Corpuscular Volume 73.2 fL (80.0-100.0); Mean Platelet Volume 10.3 fL (9.4-12.3); Monocytes # (auto) 0.92 K/uL (0.24-0.82); Monocytes % (auto) 13.2 %; Neutrophils # (auto) 3.82 K/uL (1.4-6.5); Nucleated RBC # (auto) 0.04 K/uL (0-0); Nucleated RBC % (auto) 0.6 %; Platelet Count 269 K/uL (130-400); RDW Coefficient of Variation 24.1 % (11.5-14.5); RDW Standard Deviation 61.8 fL (36.4-46.3); Red Blood Count 4.37 M/uL (3.93-5.22); White Blood Count 6.95 K/ul (4.8-10.8)
[2022-09-29 07:20] LABS: BUN Creatinine Ratio 12.3 (10-20); Calcium 8.3 mg/dl (8.5-10.1); Creatinine Clr Calc Pharmacy 44.5 ml/min; Est GFR (African American) 75.7 ml/min; Est GFR (Non-African American) 65.3 ml/min; Potassium 3.8 mmol/L (3.5-5.1)
[2022-09-29 07:29] LABS: Anisocytosis Present; Target Cells 1+
[2022-09-29 07:34] LABS: Estimated Average Glucose 123 mg/dl; Hemoglobin A1C 5.9 % (4.5-5.6)
[2022-09-29] MEDS: ATORVASTATIN 40 MG TAB PO SCH (07:47)
[2022-09-29] MEDS: METOPROLOL SUCC 25MG EXT REL TAB PO SCH (07:47)
[2022-09-29] MEDS: INSULIN ASPART PER UNIT SC SCH ×2 (08:42→12:50)
--- NOTE | 2022-09-29 11:47 | Gastroenterology Progress Note ---
Date of Service September 29, 2022 Assessment & Plan (1) Anemia: Plan: Patient is an 87 years old female seen for anemia, and heme positive stools. Previous history of PUD. Had EGD and colonoscopy at [facility] in 03/2022 which showed gastritis, hiatal hernia, diverticulosis. She was following with Dr. Marshall ([facility]) for iron infusions though hasn't seen him recently. - Monitor blood ct and transfuse prn - Given stable blood ct in the last 2 days, normal BUN, no signs of gross GI bleeding, no urgent indication for EGD. Pt also prefers outpt workup for her anemia and would like to get discharged. - PPI PO BID - Avoid ETOH, NSAIDs - CL diet, advance as tolerated - GI to sign off; pls recall prn Admission and Anticipated Discharge Date Admission Date: September 27, 2022 Subjective Patient denies any fevers or chills overnight, chest pain or shortness of breath, abdominal pain, nausea or vomiting. Last bowel movement was about 4 days ago. Review of Systems Review of Systems: All systems reviewed & are unremarkable except as noted in HPI & below Physical Exam Constitutional: WD/WN, vitals as above well groomed, cooperative and comfortable Eyes: PERRL, conjunctivae normal, anicteric sclerae ENMT: external ear and nose normal, oropharynx normal Respiratory: normal respiratory effort, lungs clear to auscultation Cardiovascular: RRR, no murmur, no edema Gastrointestinal (Abdomen): normal bowel sounds, soft, nontender, no hepatosplenomegaly Skin: no rashes, warm and dry no jaundice Psychiatric: A+Ox3, euthymic affect Lymphatic: no lymphedema Results & Data ([facility]) Vital Signs (Past 12 Hours) Vital Signs Temp Pulse Pulse Resp BP Pulse Ox O2 Del Method 09/29/22 11:22 37.0 C 78 19 130/62 93 Room Air 09/29/22 07:24 36.8 C 77 19 169/75 H 94 Room Air 09/29/22 07:22 Room Air 09/29/22 02:44 36.5 C 69 18 150/69 H 97 Room Air 09/29/22 00:28 66
--- NOTE | 2022-09-29 12:15 | Hospitalist Progress Note ---
Date of Service September 29, 2022 Assessment & Plan (1) Symptomatic anemia: Plan: Symptomatic Anemias/p 3 units of packed RBC transfusion Melena Likely Upper GI bleed Hx of GERD, Hiatal hernia. Hypotensive on presentation; blood pressure improved after transfusion +FOBT in ED CT ABD:No acute abnormalities, in particular no evidence of intra-abdominal hemorrhage in this patient with anemia. Ferritin 5.1 Microcytic Anemia present Plan; -Patient has received 3 units of packed RBC; will receive H&H. -Currently on Protonix drip; continue for now. -N.p.o. for now; GI on board. Appreciate recs. Troponin Elevation Likely demand ischemia secondary to significant anemia Hx of TAVR 08/09/2021 Denies any chest pain Widely patent coronary anatomy per cardiac catheterization at [facility] 04/07/2021 Troponin trended up to 600s. Echo shows well-seated prosthetic aortic valve. EF of 55 to 60%. No segmental wall motion abdominal pain. Plancardiology on board; patient is stable from cardiac standpoint. Recommend to correct her anemia. DM II Diet controlled A1c would not be of any significance given her anemia and repeated transfusion. Monitor blood glucose Severe aortic stenosis S/P TAVR in 2020 Follows with [facility] cardiology as outpatient Continue metoprolol Insomnia Mood disorder Continue home meds DVT Px: SCDs Code Status Full Code Disposition PT/OT ordered Admission and Anticipated Discharge Date Admission Date: September 27, 2022 Physical Exam Physical Exam: General: no acute distress and stated age Head: normocephalic, no masses, lesions, tenderness or abnormalities Eyes: conjunctiva are pink and non-injected, sclera clear Neck: supple, no adenopathy, no bruits, normal jugular venous pulse, no hepatojugular reflux Chest: normal shape and normal respiratory effort Lungs: clear to auscultation and percussion Cardiac Exam: - regular rate & rhythm, no murmurs gallops or rubs - normal S1, normal S2 Pulses: 2(+) throughout Abdomen: Soft, nontender. Musculoskeletal: no gait disturbance, no joint inflammation, no deforming arthritis Extremities: no edema and no cyanosis Neuro: grossly normal exam Results & Data Results & Data ([facility]) Vital Signs (Past 12 Hours) Vital Signs Temp Pulse Pulse Resp BP Pulse Ox O2 Del Method 09/29/22 11:22 37.0 C 78 19 130/62 93 Room Air 09/29/22 07:24 36.8 C 77 19 169/75 H 94 Room Air 09/29/22 07:22 Room Air 09/29/22 02:44 36.5 C 69 18 150/69 H 97 Room Air 09/29/22 00:28 66
--- NOTE | 2022-09-29 12:36 | Discharge Summary ---
Date of Service September 29, 2022 Admission HPI Per Admitting Provider Patient is an 87-year-old female with history of severe aortic stenosis S/P TAVR in 2020, GERD, CKD stage III, insomnia, mood disorder, paroxysmal atrial tachycardia, dyslipidemia, diabetes and other medical problems presents with history of generalized weakness, fatigue with minimal exertion, weight loss which has been ongoing for many months. Patient was evaluated by her electro mechanic today and was thought to be dehydrated and so was sent to ED for further evaluation. Patient admits to have lost about 30 to 40 pounds in about 1 year. She had TAVR about 1 year ago and has not been feeling well since the s urgery. She reports having prior history of peptic ulcer disease requiring blood transfusions many years ago. She has been having intermittent nausea, vomiting, poor oral intake and intermittent epigastric pain which she describes as burning type, relieved with yogurt but denies any aggravating factors, radiation. Reports chronic constipation last bowel movement 2 days ago. She states having black stools which she attributes to iron pills but did not notice any bright red blood per rectum. She states that she is not able to perform her ADLs like she did before and she has been lying in bed most of the time for last few months. Denies any history of chest pain, dyspnea, palpitations, pedal edema, cough, fever, chills, headache, diarrhea, dysuria, hematuria. Admission Exam Per Admitting Provider Physical Exam: Vitals signs as noted above General Appearance:Moderately built and nourished, no apparent distress Head: normocephalic, Atraumatic Eyes: normal inspection, EOMI Neck: supple, Trachea midline Respiratory/Chest: Normal breath sounds, CTA, No accessory muscle use Cardiovascular: S1, S2, + murmur Abdomen/GI:Soft, mild hypogastric tender, Bowel sounds present Extremities/Musculoskeletal:normal inspection, no edema Neurologic/Psych:AAOX3, grossly no focal neurological deficits Skin: normal color, warm Principal Diagnosis Symptomatic Anemias/p 3 units of packed RBC transfusion Melena Hx of GERD, Hiatal hernia. Troponin Elevation Likely demand ischemia secondary to significant anemia Hx of TAVR 08/09/2021 Discharge Exam General: no acute distress and stated age Head: normocephalic, no masses, lesions, tenderness or abnormalities Eyes: conjunctiva are pink and non-injected, sclera clear Neck: supple, no adenopathy, no bruits, normal jugular venous pulse, no hepatojugular reflux Chest: normal shape and normal respiratory effort Lungs: clear to auscultation and percussion Cardiac Exam: - regular rate & rhythm, no murmurs gallops or rubs - normal S1, normal S2 Pulses: 2(+) throughout Abdomen: Soft, nontender. Musculoskeletal: no gait disturbance, no joint inflammation, no deforming arthritis Extremities: no edema and no cyanosis Neuro: grossly normal exam Discharge Data Allergies Allergy/AdvReac Type Severity Reaction Status Date / Time pollen extracts Allergy Intermediate Sneezing Verified 09/27/22 16:19 Consultations 09/27/22 15:22 ED Decision to Admit Stat 09/27/22 18:58 Consult Gastroenterology Routine 09/28/22 07:37 Consult Cardiology Routine Procedures Performed Operation Date: 09/29/22 09:40 <No data on this case meets the specified criteria> Ordered Studies 09/27/22 16:26 CT abd pelvis wo con Urgent Hospital Course (1) Symptomatic anemia: Patient is an 87-year-old female with history of severe aortic stenosis S/P TAVR in 2020, GERD, CKD stage III, insomnia, mood disorder, paroxysmal atrial tachycardia, dyslipidemia, diabetes and other medical problems presents with history of generalized weakness, fatigue with minimal exertion, weight loss which has been ongoing for many months. Patient was evaluated by her electro mechanic and was sent to the ED for further evaluation. On presentation to the hospital, patient was normotensive, afebrile and saturating well in room air. Her hemoglobin level was found to be 7.1. FOBT was positive in the ED. Patient was given 1 unit of packed RBC, started on Protonix drip and was admitted to telemetry for further monitoring. Repeat hemoglobin was found to be 6.7; she was transfused 2 more units of packed RBC. Her hemoglobin stabilized around 10. Her ferritin was found to be 5.1 consistent with iron deficiency anemia. Gastroenterology was consulted for possible upper GI bleed. Patient was recommended to be started on Protonix oral twice daily and follow-up with GI for outpatient endoscopy. Patient was cleared to be discharged home from GI. Patient was given prescription for Protonix twice daily for 30 days. She will follow-up with her primary care doctor on October 04. GI also recommended patient to be seen by hematology as outpatient for work-up for anemia. Patient was stable at the time of discharge. Patient was also found to have elevated troponin with high-sensitivity troponin in 600 range. Cardiology was consulted; did not recommend any further work-up and recommended to correct underlying anemia. Echocardiogram was done while she was hospitalized which showed well-seated prosthetic aortic valve, EF of 55% with no wall motion abnormalities. Total Time Total Time Spent Total Time Spent (In Minutes): 40 Total Time Includes: Examination of the Patient, Discharge Planning, Medication Reconciliation, Communication With Other Providers and Other Discharge Plan Discharge Items Patient Disposition: Home - Self-Care Reason For Visit: SYMPTOMATIC ANEMIA Discharge Diagnosis: Symptomatic Anemias/p 3 units of packed RBC transfusion Melena Hx of GERD, Hiatal hernia. Demand Ischemia Activity: Resume your previous activity Non-emergency contact: Primary Care Provider Call non-emergency contact if: you have any medication questions and your symptoms worsen Follow-up/Referrals: Maria eTresa Tomas DO [Primary Care Provider] - Diet: Regular Addtl Attending Provider Instructions: You were admitted to the hospital with anemia. You received 3 units of blood transfusion. Your hemoglobin level at the time of discharge is 10.5. GI doctor saw you while you are hospitalized. They recommended you to be started on Protonix 40 mg twice daily. They will call and schedule an outpatient appointment for endoscopy. The prescription for Protonix has been sent to your pharmacy. You have appointment with your primary care doctor on October 04, 2022 at 11:10 AM. Please discuss with your primary care doctor regarding follow-up with Dr. Marshall for possible iron transfusion as recommended by gastroenterology. Pending Studies at Discharge: No Stand-Alone Forms: My [facility], Smoking Cessation Medications and DC Order Prescriptions: New pantoprazole 40 mg Tablet,Delayed Release (Dr/Ec) 40 mg PO BID Qty: 60 0RF Continued multivitamin Tablet 1 tab PO 3XWK fluticasone propionate [Flonase Allergy Relief] 50 mcg/actuation [place],Suspension 2 spray INTRANASAL DAILY PRN (Reason: Congestion) atorvastatin 80 mg tablet 80 mg PO DAILY amoxicillin 500 mg Tablet 2,000 mg PO DIRECTED PRN (Reason: PRIOR TO DENTAL APPT.) sertraline 50 mg tablet 75 mg PO QPM Rx Instructions: LAST FILLED 01/27/22 FOR 90 DAYS/135 TABS. cholecalciferol (vitamin D3) [Vitamin D3] 25 mcg (1,000 unit) Capsule 75 mcg PO DAILY mirtazapine 7.5 mg tablet 7.5 mg PO HS Rx Instructions: LAST FILLED 03/19/22 FOR 90 TABS/90 DAYS. Vitron-C 65 mg iron- 125 mg Tablet,Delayed Release (Dr/Ec) 1 tab PO DAILY Rx Instructions: LAST FILLED 01/05/22 FOR 30 TABS/30 DAYS. metoprolol succinate 25 mg Tablet Extended Release 24 Hr 12.5 mg PO DAILY Discontinued pantoprazole 40 mg Tablet,Delayed Release (Dr/Ec) 40 mg PO DAILY Rx Instructions: PER PT "ONLY IN AM" PER [facility] "BID". Discharge Orders: Discharge Order (Routine); Ordered 09/29/22 Ordered By: Alexander Ward Admission Data Admit Date/Time: 09/27/22 16:31 Attending Provider: Alexander Ward Admit Provider: Harrison Vega Primary Care Provider: Maria Teresa Tomas Other Providers: Harrison Vega ; Norma Hogue ; Jadiel Borges
[2022-09-29] MEDS ORDERED: PANTOprazole 40 MG TAB PO SCH (21:00)
== END 2022-09-29 14:25 | disposition home or self-care (01) | DRG 812 ==
LOC: ED 13:53 → 2S 16:31 → SUATTDRO 16:31 → 2S 19:02